=== PATIENT | female | born 1990 | race Caucasian/White ===

== ENCOUNTER → 2025-02-28 06:12 | Outpatient (REF) | payer BC, SELFPAY ==
[2025-02-28 10:18] LABS: ALT (SGPT) 16 U/L (0-35); AST (SGOT) 23 U/L (14-36); Albumin 4.7 g/dl (3.5-5.0); Alkaline Phosphatase 46 U/L (38-126); Blood Urea Nitrogen 12 mg/dl (7-17); Calcium 9.7 mg/dl (8.4-10.2); Carbon Dioxide 27 mmol/L (22-30); Chloride 106 mmol/L (98-107); Glucose 96 mg/dl (70-99); Potassium 4.0 mmol/L (3.5-5.1); Sodium 139 mmol/L (135-145); Total Protein 7.7 g/dl (6.3-8.2); eGFR > 60.00
[2025-02-28 10:25] LABS: FSH 1.7 mIU/ml; Vitamin D, 25-OH*** 38.5 ng/mL (30-80)
[2025-02-28 10:40] LABS: Cortisol, Random 17.0 ug/dl; TSH 2.10 uIU/ml (0.47-4.68)
== END ==
LOC: HWLAB 06:12
PROVIDERS: ATTENDING PHYSICIAN Internal Medicine Endocrinology, Diabetes & Metabolism; FAMILY PHYSICIAN Student in an Organized Health Care Education/Training Program
DX: E23.7 Disorder of pituitary gland, unspecified (principal); D35.2 Benign neoplasm of pituitary gland; E55.9 Vitamin D deficiency, unspecified
CPT/HCPCS: 36415; 80053; 82024; 82306; 82533; 82670; 83001; 83002; 84146; 84436; 84443

== ENCOUNTER 2025-05-08 13:41 | Emergency (ER) | payer BC, SELFPAY ==
[2025-05-08 13:44] VITALS: BP 145/96
--- NOTE | 2025-05-08 16:59 | ED.GENMED ---
History of Present Illness
<Gama Rider Jailyn, DO - Last Filed: 05/08/25 20:01>
General
Chief Complaint: Crisis Evaluation
Time Seen by Provider: 05/08/25 16:59
History of Present Illness
History of Present Illness:
FOCUSED PAST MEDICAL HISTORY
- History of pituitary adenoma
REVIEW OF OLD RECORDS
- I reviewed records, the patient had upper endoscopy in 2010 here
Note:
CHIEF COMPLAINT(S)
The patient presents with multiple concerns, including mental health issues characterized by a belief of being manic, hallucinations, and increasing paranoia.
HISTORY OF PRESENT ILLNESS
The patient is a 34-year-old female with a history of bipolar disorder, expressing concern for her mental state, describing current feelings of manas. She reports experiencing hallucinations and increasing paranoia. Her adherence to medication is
inconsistent, contributing to concerns about the management of her condition. Additionally, she has a past history of a pituitary adenoma, with imaging from about a year ago being relatively unremarkable.
EXTERNAL RECORDS REVIEWED
Imaging performed about a year ago indicated no significant findings regarding the pituitary adenoma. Recent diagnostics, including hemoglobin, chemistry, and ECG, returned normal results, and a CT scan of the brain showed no acute abnormalities.
CHRONIC MEDICAL CONDITIONS SIGNIFICANTLY AFFECTING CARE
The patient has a known history of bipolar disorder and a pituitary adenoma.
PHYSICAL EXAM
General: Alert but appears distressed with pressured speech, displays tearfulness, and presents with signs of emotional upset.
Skin: Warm, dry.
Head: Normocephalic, atraumatic.
Neck: Supple, trachea midline.
Eye, Ears, Nose, and Throat: Oral mucosa moist.
Cardiovascular: Normal peripheral perfusion, No edema.
Respiratory: Respirations are non-labored.
Gastrointestinal: Abdomen nondistended.
Back: Normal range of motion, Normal alignment.
Musculoskeletal: Normal ROM, normal strength.
Neurological: Alert and oriented to person, place, time, and situation. Lacks concentration at times.
Psychiatric: Displays pressured speech, tearfulness, emotional distress, and difficulty concentrating.
PLAN
The crisis team was engaged to evaluate the patient further due to her mental health status. Continued monitoring and management of her bipolar disorder, including medication adherence, will be necessary.
DIFFERENTIAL DIAGNOSIS
The Differential Diagnosis includes, in no particular order and is not limited to: Bipolar disorder, Acute psychosis, Anxiety disorder, Substance-induced psychotic disorder, Schizoaffective disorder, Encephalitis, Meningitis, Brain tumor, Medication
non-compliance effects, Hyperthyroidism.
Disposition:
SUMMARY OF ENCOUNTER
The patient, a 34-year-old female with a history of bipolar disorder and a pituitary adenoma, presented to the emergency department with symptoms of manas, hallucinations, and increasing paranoia. She reported inconsistent adherence to her
medication regimen. Recent history includes self-management of manas through medications. The patient expressed the need for psychiatric facility placement due to experiencing unsafe symptoms, including seeing things on the road. A CT scan of the
brain was performed with no acute findings, and blood work was unremarkable.
PLAN
The crisis team was re-engaged to further evaluate the need for psychiatric facility placement due to the patients current mental health status.
INDEPENDENT REVIEW OF LABS AND INTERPRETATION OF TESTS
My independent review of the CT scan indicates there were no acute abnormalities. The blood work was reviewed and deemed overall normal.
PATIENT EDUCATION AND COUNSELING
The patient was informed about her current mental health status and the importance of adhering to prescribed medication. Discussions included the need for potential psychiatric facility admission for appropriate management.
FOLLOW-UP INSTRUCTIONS
Await further evaluation by the crisis team for potential psychiatric facility placement. Ensure follow-up with primary care or psychiatric care for ongoing management after discharge from any facility.
MEDICATION RECONCILIATION
- doxepin 10 mg (taken in the past for management)
- clomipramine 10 mg (taken in the past for management)
- lorazepam 1 mg (as needed for anxiety, taken in the past)
MEDICAL DECISION MAKING
- Number and Complexity of Problems Addressed: Chronic conditions affecting care include bipolar disorder and pituitary adenoma.
- Data:
Category 1: Clinical information includes the patients self-reported medication history and recent self-management strategies. Reviewed the CT scan and blood work results as well as the patients outpatient pharmacy records.
Category 2: No direct independent interpretation was required.
Category 3: The crisis team was consulted for further evaluation of the patients mental health condition.
-Risk: The complexity of the patients presenting symptoms and history necessitates consideration of inpatient psychiatric management for safety and stabilization.
DIAGNOSIS
- Bipolar disorder, current episode manic associated with hallucination
- Self-reported medication non-compliance affecting management
RADIOLOGY
- Given patient's history, a brain CT was obtained which was relatively unremarkable
LABS
- White count hemoglobin normal, chemistries unremarkable, hCG negative
I discussed case with crisis just after 7 PM and they will reassess the patient. The patient feels that she needs to be placed at a psychiatric facility. The patient has been doing poorly as an outpatient.
Crisis bed searching as of 8 PM.
Phy Exam
<Cornelio Cintron MD - Last Filed: 05/09/25 02:24>
Physical Exam
Physical Exam:
.
Course
<Gama Glaser DO - Last Filed: 05/08/25 20:01>
Orders/Labs/Results
Orders:
Orders
05/08/25 17:12
CT Head W/o Iv Contrast Urgent
Comment:
Reason For Exam: altered ms; h/o pituitary adenoma
Crisis Consult Urgent
Reason for Consult: manic
Test Result ONCE
05/08/25 17:26
Complete Blood Count/With Diff Urgent
Comprehensive Metabolic Panel Urgent
HCG, Serum Qualitative Screen Urgent
05/08/25 21:05
Electrocardiogram (*1) Stat
Reason for Study: Other
Other Reason for Exam: chest pain
EKG- Treatment ONCE
05/08/25 21:14
Asenapine Sublingual [Saphris] 5 mg SL NOW STA
05/08/25 22:29
Lorazepam [Ativan] 1 mg PO NOW STA
Abnormal Lab Results
05/08/25
17:26
MCH 31.8 H pg
(27.0-31.0)
Absolute Neuts (auto) 6.9 H 10^3/uL
(1.4-6.5)
Glucose 107 H mg/dl
(70-99)
Total Protein 9.0 H g/dl
(6.3-8.2)
Albumin 5.4 H g/dl
(3.5-5.0)
05/08/25 17:26
05/08/25 17:26
Vital Signs
Initial and Last Documented VS:
Initial Vital Signs
Temp Pulse Resp BP Pulse Ox
98.2 F 96 16 145/96 96
05/08/25 13:44 05/08/25 13:44 05/08/25 13:44 05/08/25 13:44 05/08/25 13:44
Last Documented Vital Signs
Temp Pulse Resp BP Pulse Ox
98.2 F 96 16 145/96 96
05/08/25 13:44 05/08/25 13:44 05/08/25 13:44 05/08/25 13:44 05/08/25 17:01
<Cornelio Cintron MD - Last Filed: 05/09/25 02:24>
Orders/Labs/Results
Orders:
Orders
05/08/25 17:12
CT Head W/o Iv Contrast Urgent
Comment:
Reason For Exam: altered ms; h/o pituitary adenoma
Crisis Consult Urgent
Reason for Consult: manic
Test Result ONCE
05/08/25 17:26
Complete Blood Count/With Diff Urgent
Comprehensive Metabolic Panel Urgent
HCG, Serum Qualitative Screen Urgent
05/08/25 21:05
Electrocardiogram (*1) Stat
Reason for Study: Other
Other Reason for Exam: chest pain
EKG- Treatment ONCE
05/08/25 21:14
Asenapine Sublingual [Saphris] 5 mg SL NOW STA
05/08/25 22:29
Lorazepam [Ativan] 1 mg PO NOW STA
Abnormal Lab Results
05/08/25
17:26
MCH 31.8 H pg
(27.0-31.0)
Absolute Neuts (auto) 6.9 H 10^3/uL
(1.4-6.5)
Glucose 107 H mg/dl
(70-99)
Total Protein 9.0 H g/dl
(6.3-8.2)
Albumin 5.4 H g/dl
(3.5-5.0)
05/08/25 17:26
05/08/25 17:26
Vital Signs
Initial and Last Documented VS:
Initial Vital Signs
Temp Pulse Resp BP Pulse Ox
98.2 F 96 16 145/96 96
05/08/25 13:44 05/08/25 13:44 05/08/25 13:44 05/08/25 13:44 05/08/25 13:44
Last Documented Vital Signs
Temp Pulse Resp BP Pulse Ox
98.2 F 96 16 145/96 96
05/08/25 13:44 05/08/25 13:44 05/08/25 13:44 05/08/25 13:44 05/08/25 17:01
<Gama Glaser DO - Last Filed: 05/08/25 20:01>
*Pulse Oximetry
SaO2: 96
Oxygen Mode of Delivery: Room air
<Cornelio Cintron MD - Last Filed: 05/09/25 02:24>
*Pulse Oximetry
Patient hypoxic: no (96)
*Critical Care Note
Total Time (30-74mins, 75-104mins- exclusive of procedures): Not Applicable
<Cornelio Cintron MD - Last Filed: 05/09/25 02:24>
Update Note
Update Note:
2119... Informed by the RN patient feels more manic and more hallucinations and more paranoid thoughts. Nothing suicidal or immediate danger to self. She states she takes her regular medications and took them this last evening. I did an EKG to
check QT interval which is within normal limits. Feel 5 of Saphris is reasonable.
ED Attending Note
<Gama Glaser, - Last Filed: 05/08/25 20:01>
-
Portions of this chart may have been created with voice recognition software.� Occasional wrong word or��sound alike� substitutions may have occurred due to the inherent limitations of voice recognition software.
Discharge Plan
Departure
Patient Disposition: Psych Facility
Date of Disposition: 05/08/25
Time of Disposition: 19:59
Discharge Problem:
Bipolar disorder with severe manas
Referrals:
Josh Witt MD [Family Provider, Family Practice]
Interventions
Interventions:
*Risk Screen - Suicide Last Done: 05/08/25 13:47
*General Assessment Last Done: 05/08/25 18:07
*Neglect/Abuse Screening Last Done: 05/08/25 13:47
*ED- Fall Risk Assessment Last Done: 05/08/25 16:36
*ED COVID-19 Vaccine History Last Done: 05/08/25 16:36
*ED Influenza Vaccine History Last Done: 05/08/25 16:36
*Nursing Disposition Last Done: 05/09/25 00:59
ED-Psychological Assessment Last Done: 05/08/25 17:35
Discharge Date and Time
Discharge Date/Time: 05/09/25 01:00
Print Language: CANADIAN
[2025-05-08 17:39] LABS: Hematocrit 41.5 % (37.0-47.0); Hemoglobin 14.2 g/dL (12.0-16.0); Mean Corp Hgb Conc. 34.2 g/dL (33.0-37.0); Mean Corpuscular Volume 93.0 fL (81.0-99.0); Nucleated Red Blood Cells % 0 %; Platelet Count 262 10^3/uL (130-400); Red Cell Dist. Width 13.0 % (11.5-14.5)
[2025-05-08 17:59] LABS: HCG, Serum Qualitative Screen Negative
[2025-05-08 18:02] LABS: ALT (SGPT) 22 U/L (0-35); AST (SGOT) 27 U/L (14-36); Albumin 5.4 g/dl (3.5-5.0); Alkaline Phosphatase 66 U/L (38-126); Blood Urea Nitrogen 10 mg/dl (7-17); Calcium 9.7 mg/dl (8.4-10.2); Carbon Dioxide 26 mmol/L (22-30); Chloride 104 mmol/L (98-107); Glucose 107 mg/dl (70-99); Potassium 3.9 mmol/L (3.5-5.1); Sodium 136 mmol/L (135-145); Total Protein 9.0 g/dl (6.3-8.2); eGFR > 60.00
[2025-05-08 21:23] VITALS: BMI 22.5
[2025-05-08] MEDS: SAPHRIS 5 MG SL (21:23)
[2025-05-08] MEDS: ATIVAN 1 MG PO (22:33)
== END 2025-05-09 01:00 ==
LOC: EMR 13:41
PROVIDERS: EMERGENCY PHYSICIAN Emergency Medicine; FAMILY PHYSICIAN Student in an Organized Health Care Education/Training Program
DX: F31.9 Bipolar disorder, unspecified (principal); Z86.018 Personal history of other benign neoplasm; Z91.148 Patient's other noncompliance with medication regimen for other reason
CPT/HCPCS: 99285; 70450; 80053; 84703; 85025; 93005